=== PATIENT | female | born 1970 | race Caucasian/White ===

== ENCOUNTER 2024-04-14 12:47 | Emergency (ER) | payer OTHER, SELFPAY ==
[2024-04-14 12:50] VITALS: BP 145/89
--- NOTE | 2024-04-14 14:00 | ED.SKININJ ---
HPI-Injury
General
Chief Complaint: Skin Surface Trauma
Source: patient
Exam Limitations: none
Time Seen by Provider: 04/14/24 13:08
Nursing documentation reviewed up to this point in time: agreed with
History of Present Illness-Injury
Is this injury a work related problem?: No
Is pt an associate of [facility]/[place]?: No
Initial Injury comments:
Accidentally cut self with hedge clipper. Sustained laceration to left fingers 1,2,3. injury occurred just [employer]. Full ROM to fingers, no evidence of tendon involvement.
Past History
Past History
ED Past Medical History: None and Other (migraines, hypothyroidism, djd)
ED Past Surgical History: None and
Social History
Tobacco: Non-smoker
Alcohol: Occasional
Drug: None
Personal:
Living: with family
Employment: Employed
Review of Systems
Review of Systems
Allergies reviewed?: Yes
All Other Systems: ROS reviewed and negative except as documented in HPI and ROS
Constitutional: Reports no symptoms
Musculoskeletal: Reports no symptoms
Skin: Reports other (lacerations to fingers 1.2.3)
Neurological: Reports no symptoms
Psychiatric: Reports no symptoms
Skin Exam
Laceration
Left Thumb:
Length in cm: 1.5
Orientation: stellate
Type of Laceration: simple
Any active bleeding?: no active bleeding
Distal skin color and temperature: normal-warm & good color
Normal distal neurovascular exam: Yes
Range of motion: full
Left Second Finger:
Length in cm: 1.5
Orientation: stellate
Type of Laceration: simple
Any active bleeding?: no active bleeding
Distal skin color and temperature: normal-warm & good color
Normal distal neurovascular exam: Yes
Range of motion: full
Left Third Finger:
Length in cm: 1.5
Orientation: stellate
Type of Laceration: simple
Any active bleeding?: no active bleeding
Distal skin color and temperature: normal-warm & good color
Normal distal neurovascular exam: Yes
Range of motion: full
Phy Exam
General Physical Exam
General Presentation: well appearing and no apparent distress
General age: appears stated age
General Skin: warm and dry
General Habitus: normal
General Mental: alert
Musculoskeletal Exam
Musculoskeletal Exam: full ROM and neuro vasc intact
Skin Exam
Skin Exam: normal color, warm/dry and no rash
Psychiatric Exam
Psychiatric Exam: normal mood/affect
Course
Orders/Labs/Results
Orders:
Orders
04/14/24 12:48
Hand, Left 3 View [CR Hand - Left Min 3 Views] Urgent
Comment:
Reason For Exam: hand in slash trimmer
04/14/24 13:57
Sulfamethox./Trimethoprim Ds [Bactrim Ds 800 mg/160 mg] 1 tablet PO NOW STA
Tetanus/Diphth/Acelpertussis [Adacel] 0.5 ml IM .ONCE ONE
Vital Signs
Initial and Last Documented VS:
Initial Vital Signs
Temp Pulse Resp BP Pulse Ox
98.4 F 87 16 145/89 97
04/14/24 12:50 04/14/24 12:50 04/14/24 12:50 04/14/24 12:50 04/14/24 12:50
Last Documented Vital Signs
Temp Pulse Resp BP Pulse Ox
98.4 F 81 16 145/89 97
04/14/24 12:50 04/14/24 13:15 04/14/24 13:15 04/14/24 12:50 04/14/24 12:50
Procedures
Laceration Closure
Left Thumb:
Status of Wound: clean
Description of Wound Edges: ragged
Preparation: cleaned with saline
Anesthesia: 1% Lidocaine
Revision/Debridement: routine- no revision
Wound exploration: explored to base- no FB and no tendon involvement
Type of Closure: single layer closure
Skin Closure Material: 5-0 nylon
Left Second Finger:
Status of Wound: clean
Description of Wound Edges: ragged
Preparation: cleaned with saline and cleaned with Betadine
Anesthesia: 1% Lidocaine
Revision/Debridement: routine- no revision
Wound exploration: extensive cleaning of contaminated wound and no tendon involvement
Type of Closure: single layer closure
Left Third Finger:
Status of Wound: clean
Description of Wound Edges: ragged
Preparation: cleaned with saline and cleaned with Betadine
Anesthesia: 1% Lidocaine
Revision/Debridement: routine- no revision
Wound exploration: explored to base- no FB
Type of Closure: single layer closure
Skin Closure Material: 5-0 prolene
*Radiology
Radiology exam reviewed: radiology read reviewed
*Pulse Oximetry
Patient hypoxic: no
*Critical Care Note
Total Time (30-74mins, 75-104mins- exclusive of procedures): Not Applicable
ED Attending Note
-
Portions of this chart may have been created with voice recognition software.� Occasional wrong word or��sound alike� substitutions may have occurred due to the inherent limitations of voice recognition software.
Discharge Plan
Departure
Patient Disposition: Home (Routine Discharge)
Date of Disposition: 04/14/24
Time of Disposition: 13:58
Patient with high blood pressure during this ER visit?: No
Condition: Good
Covid-19: Not Applicable
Discharge Problem:
Finger laceration
Instructions: Laceration Repair With Stitches (DC)
Prescriptions:
New
sulfamethoxazole-trimethoprim [Bactrim DS] 800-160 mg tablet
1 tab PO BID Qty: 14 0RF
No Action
Celexa
150 mg PO DAILY
Synthroid
0.5 mg PO DAILY
cefdinir 300 MG capsule
300 mg PO BID Qty: 14 0RF
Referrals:
NONE,* [Family Provider] -
Stand Alone Forms: Return to Work
Activity Restrictions/Additional Instructions:
Sutures can be removed in 7-10 days by your family doctor.
Interventions
Interventions:
*Risk Screen - Suicide Last Done: 04/14/24 13:04
*General Assessment Last Done: 04/14/24 13:04
*Neglect/Abuse Screening Last Done: 04/14/24 13:04
ED- Fall Risk Assessment Last Done: 04/14/24 13:04
*ED COVID-19 Vaccine History Last Done: 04/14/24 13:04
ED-Skin Assessment Last Done: 04/14/24 13:04
Discharge Date and Time
Print Language: BENGALI
[2024-04-14] MEDS: ADACEL 0.5 ML IM (14:02)
[2024-04-14] MEDS: BACTRIM DS 800 MG/160 MG 1 TABLET PO (14:02)
[2024-04-14 14:48] VITALS: BP 134/78
== END 2024-04-14 14:48 | disposition home or self-care (01) ==
LOC: EMR 12:47
PROVIDERS: EMERGENCY PHYSICIAN Emergency Medicine; FAMILY PHYSICIAN Nurse Practitioner
DX: S61.012A Laceration without foreign body of left thumb without damage to nail, initial encounter (principal); S61.211A Laceration without foreign body of left index finger without damage to nail, initial encounter; S61.213A Laceration without foreign body of left middle finger without damage to nail, initial encounter; W29.3XXA Contact with powered garden and outdoor hand tools and machinery, initial encounter; Z23 Encounter for immunization
CPT/HCPCS: 99284; 12041; 12002; 90471; 73130; 90715

== ENCOUNTER 2024-11-10 13:02 | Emergency (ER) | payer OTHER, SELFPAY ==
[2024-11-10 13:05] VITALS: BP 115/65
--- NOTE | 2024-11-10 15:23 | ED.GENMED ---
History of Present Illness
General
Chief Complaint: Musculo-Skeletal Complaint
Source: patient
Time Seen by Provider: 11/10/24 15:17
History of Present Illness
History of Present Illness:
54-year-old female with past medical history of migraines and hypothyroidism presenting to the emergency department for evaluation of nontraumatic right-sided hip/groin pain that began a couple weeks ago, increased pain after doing some gardening
yesterday. Patient notes pain worsens with any attempted movement. Denies any history of similar. No fevers, chills, rigors, rashes or any other concerns. She did attempt some Motrin intermittently with minimal relief.
Past History
Past History
ED Past Medical History: Other (migraines, hypothyroidism, djd)
ED Past Surgical History:
Social History
Tobacco: Non-smoker
Alcohol: Occasional
Drug: None
Personal:
Living: with family
Employment: Employed
Review of Systems
Review of Systems
All Other Systems: ROS reviewed and negative except as documented in HPI and ROS
Phy Exam
Physical Exam
Physical Exam:
GENERAL: Alert , in no apparent distress
EYE: conjunctiva clear
Head: Normocephalic atraumatic
NECK: Supple,
ENT: mmm.
LUNGS: no acute respiratory distress
NEUROLOGICAL: Alert and oriented
SKIN: Warm and dry, skin intact.
MUSCULOSKELETAL: well perfused. Easily palpable pedal and tibial pulse. Cap refill less than 2 seconds. Patient is able to range of motion the right hip although has discomfort while doing so. No focal areas of tenderness.
PSYCH: Normal and appropriate interaction.
Scores
Heart Failure Risk
Heart Failure Risk Score: Not Applicable
Heart Score for Chest Pain Patients
STEMI patient?: Not applicable
Withdrawal Assessment of Alcohol
Withdrawal Assessment Completed?: Not applicable
Course
Orders/Labs/Results
Orders:
Orders
11/10/24 13:08
CR Hip - RT w/wo Pel 2-3 Vw* Urgent
Comment:
Reason For Exam: pain
Include a pelvis x-ray?: Yes
Vital Signs
Initial and Last Documented VS:
Initial Vital Signs
Temp Pulse Resp BP Pulse Ox
98.1 F 68 16 115/65 97
11/10/24 13:05 11/10/24 13:05 11/10/24 13:05 11/10/24 13:05 11/10/24 13:05
Last Documented Vital Signs
Temp Pulse Resp BP Pulse Ox
98.1 F 68 16 115/65 97
11/10/24 13:05 11/10/24 13:05 11/10/24 13:05 11/10/24 13:05 11/10/24 13:05
MDM/Problems Addressed
Differential Diagnosis Includes:
tendonitis, bursitis, less concern for fracture or septic joint
MDM/Problems Addressed:
54-year-old female presenting to the ER for evaluation of nontraumatic right-sided hip pain over the last couple of weeks believing that she may have injured it while doing some yard work and ripping a tree out of the ground. No signs of trauma on
exam. Patient is still able to ambulate. X-ray ordered in triage is negative for any acute pathology, mild degenerative changes noted. Advised continued NSAIDs/Tylenol as needed for pain. Information for outpatient orthopedist provided.
Otherwise stable for discharge home.
*Radiology
Radiology exam reviewed: preliminary read by ED provider (No acute fracture)
*Pulse Oximetry
Patient hypoxic: no
*Critical Care Note
Total Time (30-74mins, 75-104mins- exclusive of procedures): Not Applicable
ED Attending Note
-
Portions of this chart may have been created with voice recognition software.� Occasional wrong word or��sound alike� substitutions may have occurred due to the inherent limitations of voice recognition software.
Discharge Plan
Departure
Patient Disposition: Home (Routine Discharge)
Date of Disposition: 11/10/24
Time of Disposition: 15:23
Patient with high blood pressure during this ER visit?: No
Discharge Problem:
Hip pain, right
Instructions: Hip Pain ED
Prescriptions:
No Action
Celexa
150 mg PO DAILY
Synthroid
0.5 mg PO DAILY
cefdinir 300 MG capsule
300 mg PO BID Qty: 14 0RF
sulfamethoxazole-trimethoprim [Bactrim DS] 800-160 mg tablet
1 tab PO BID Qty: 14 0RF
Referrals:
Ayad Ojeda MD [Active] - (Ortho - Call for appointment)
Interventions
Interventions:
*Risk Screen - Suicide Last Done: 11/10/24 13:05
*General Assessment Last Done: 11/10/24 13:05
*Neglect/Abuse Screening Last Done: 11/10/24 13:05
*ED- Fall Risk Assessment Last Done: 11/10/24 15:15
*ED COVID-19 Vaccine History Last Done: 11/10/24 13:05
*Nursing Disposition Last Done: 11/10/24 15:39
ED-Musculoskeletal Assessment Last Done: 11/10/24 15:15
Discharge Date and Time
Discharge Date/Time: 11/10/24 15:40
Print Language: CZECH
== END 2024-11-10 15:40 | disposition home or self-care (01) ==
LOC: EMR 13:02
PROVIDERS: EMERGENCY PHYSICIAN Emergency Medicine; FAMILY PHYSICIAN Nurse Practitioner
DX: M25.551 Pain in right hip (principal); R10.30 Lower abdominal pain, unspecified; E03.9 Hypothyroidism, unspecified; G43.909 Migraine, unspecified, not intractable, without status migrainosus; M19.90 Unspecified osteoarthritis, unspecified site; Z88.0 Allergy status to penicillin
CPT/HCPCS: 99283; 73502

== ENCOUNTER → 2024-11-15 07:39 | Outpatient (REF) | payer OTHER, SELFPAY | LOC: HWRAD 07:39 | PROVIDERS: ATTENDING PHYSICIAN Nurse Practitioner | DX: M54.16 Radiculopathy, lumbar region (principal) | CPT/HCPCS: 72110 ==

== ENCOUNTER → 2025-01-20 15:13 | Outpatient (REF) | payer OTHER, SELFPAY | LOC: WDC 15:13 | PROVIDERS: ATTENDING PHYSICIAN Nurse Practitioner | DX: Z12.31 Encounter for screening mammogram for malignant neoplasm of breast (principal) | CPT/HCPCS: 77063; 77067 ==